=== PATIENT | male | born 1975 | race Hispanic/Latino ===

== ENCOUNTER 2023-12-27 10:28 | Inpatient (IN) | payer OTHER ==
[~2023-12-27] VITALS: Ht 175.3 cm; Wt 89.8 kg
--- NOTE | 2023-12-27 11:12 | ERN ---
General Chief Complaint: Cellulitis Stated Complaint: CELLULITS LLE Time Seen by MD: 10:29 Time Seen by Midlevel: 10:29 Source: patient History of Present Illness Initial Comments Patient is a 48-year-old male with a history of obesity and a right tibia fracture with an or if that was done in [facility] in 2020 [facility] evaluation of right lower extremity swelling and redness. Patient states the redness and swelling started two days ago. He was started on oral antibiotics as well as antibiotic injections with little to no relief so the [facility] sent him for further evaluation. He does report having a previous history of cellulitis to his right lower leg. Most recently he was seen in our hospital earlier this year and was admitted for continuous IV antibiotics. Allergies: Coded Allergies: No Known Drug Allergies (Unverified Allergy, Unknown, 07/01/23) Home Meds No Active Prescriptions or Reported Meds Past Medical History Past Medical History: Diabetes-Type II, GERD, High Cholesterol, Hypertension Past Surgical History: None ROS Dictation CONSTITUTIONAL: Negative except for HPI HEAD/FACE: Negative except for HPI EENT: Negative except for HPI RESPIRATORY: Negative except for HPI GASTROINTESTINAL/ABDOMINAL: Negative except for HPI GENITOURINARY: Negative except for HPI MUSCULOSKELETAL: Negative except for HPI INTEGUMENTARY: Negative except for HPI NEUROLOGICAL/PSYCH: Negative except for HPI HEMATOLOGIC/LYMPHATIC: Negative except for HPI All Systems Negative, Except as noted above. 13 point review of systems assessed and all negative except for above. Physical Exam Physical Exam Dictation Vital Signs reviewed General Appearance: Alert, oriented x 3, no acute distress, well developed, nou rished. Head and Face: non-traumatic. Eyes: PERRL, pink conjunctivas, eyelid no trauma, anterior chamber with arcus senilis. Ears: Pinnas intact and no signs of trauma or erythema ear canals clear and no discharge TM no erythema Nose: No discharge, no bleeding. Oropharynx: Mouth normal, tongue pink, pharynx clear,no erythema, tonsils no exudates, no abscesses noted, mucous me mbrane moist Neck: Supple, non-tender, no thyromegaly, no masses, no JVD, no bruits Breast:Deferred Chest:No tenderness, no crepitus, no paradoxical movement, no retractions Lungs:Clear, well-ventilated, symmetric, no rales, no wheezing, no rhonchi, no stridor, good breath sounds bilaterally Heart: Regular rate, regular rhythm, no murmur, no gallops Vascular: no peripheral edema, Abdomen: Soft, positive bowel sounds, nondistended, no guarding, nontender, no rebound, no masses no hepatomegaly, no splenomegaly, no Muniz's sign, no hernias. Rectal: Deferred Genital: Deferred Neurological: Normal speech, motor function intact, sensory function intact Musculoskeletal: Neck nontender, full range of motion, back nontender, full range of motion, Extremities: Right lower extremity swelling and redness Skin: Color pink, dry, no turgor, no rash, no lacerations, no abrasions, no cont usions. Lymphatic: Deferred Results Laboratory and Microbiology Lab and Micro Result Laboratory Tests Test 12/27/23 11:13 White Blood Count 6.8 K/uL (4.8-10.8) Red Blood Count 4.80 MIL/uL (4.50-6.20) Hemoglobin 14.5 g/dL (14.0-18.0) Hematocrit 42.8 % (42-54) Mean Corpuscular Volume 89.2 fL (79-99) Mean Corpuscular Hemoglobin 30.2 pg (27.0-33.0) Mean Corpuscular Hemoglobin Concent 33.9 g/dL (32.0-36.0) Red Cell Distribution Width 13.3 % (11.0-15.5) Platelet Count 251 K/uL (130-400) Mean Platelet Volume 9.2 fL (7.5-10.5) Immature Granulocyte % (Auto) 0.4 % (0-1) Neutrophils (%) (Auto) 66.6 % (40.0-77.0) Lymphocytes (%) (Auto) 21.5 % (21.0-51.0) Monocytes (%) (Auto) 9.4 % (3.0-13.0) Eosinophils (%) (Auto) 1.8 % (0.0-8.0) Basophils (%) (Auto) 0.3 % (0.0-5.0) Neutrophils # (Auto) 4.5 K/uL (1.8-7.7) Lymphocytes # (Auto) 1.5 K/uL (1.0-4.8) Monocytes # (Auto) 0.6 K/uL (0.1-1.0) Eosinophils # (Auto) 0.12 K/uL (0.00-0.70) Basophils # (Auto) 0.02 K/uL (0.00-0.20) Absolute Immature Granulocyte (auto 0.03 K/uL (0-1) Nucleated Red Blood Cells 0.0 % (0.0-0.19) Sodium Level 142 mmol/L (136-145) Potassium Level 4.5 mmol/L (3.5-5.1) Chloride Level 105 mmol/L (101-111) Carbon Dioxide Level 29 mmol/L (21-32) Blood Urea Nitrogen 11 mg/dL (7-18) Creatinine 0.9 mg/dL (0.5-1.3) Glomerular Filtration Rate Calc 106 mL/min (>90) Random Glucose 104 mg/dL (70-105) Lactic Acid Level 2.1 mmol/L (0.8-2.5) Total Calcium 9.4 mg/dL (8.5-10.1) Procalcitonin 0.07 ng/mL (0.05-0.5) Labs Reviewed?: Yes MDM MDM: Patient is a 48-year-old male with a history of obesity and a right tibia fracture with an or if that was done in [facility] in 2020 [facility] from [facility] for evaluation of right lower extremity swelling and redness. Patient states the redness and swelling started two days ago. He was started on oral antibiotics as well as antibiotic injections with little to no relief so the [facility] sent him for further evaluation. He does report having a previous history of cellulitis to his right lower leg. Most recently he was seen in our hospital earlier this year and was admitted for continuous IV antibiotics. On physical examination patient is in no acute distress. His initial vital signs are stable. Patient is afebrile and nontoxic appearing. His right lower extremity appears to be swollen from the ankle and extends all the way up to the right knee. There is erythema to the entire right lower extremity which is consistent with cellulitis. His CBC does not show any leukocytosis. His lactic acid is only slightly elevated at 2.1 however his procalcitonin is negative. His chemistries are stable. Given that patient has a previous surgery to his right lower extremity with hardware in place and failure outpatient therapy patient was admitted for further observation and management. Patient was started on vancomycin and cefepime and case was discussed with infectious disease specialist who agrees to admit the patient for further observation and management. Differential diagnosis: Cellulitis, DVT, dehydration Rationale: Tests considered and ordered secondary to shared decision making include: Previous outside records reviewed: Old ER visits. Risk of complication and/or morbidity or mortality of patient management: None Medications-Per medication reconciliation Need for hospitalization: Patient does meet criteria for hospitalization. Need for emergency major/minor surgery: No There are no social concerns with this patient. Prescription drug management Prescriptions will include symptomatic care Patient's prior external medical records from other ER visits were reviewed by me as indicated. Prior testing and results from previous visits were reviewed. Prior tests were taken into account with medical decision making and resource utilization, independent historian/historians were used to obtain complete medical history. I independently interpreted the test that were performed, results were reviewed by me and considered findings on radiology if ordered. Medical management and examination interpretation discussions were had by me with other qualified healthcare professionals as indicated for the patient's care. ED Course Orders Procedure Category Date Status Time Cbc With Differential LAB 12/27/23 Complete 10:59 Basic Metabolic Panel LAB 12/27/23 Complete 10:59 Lactic Acid LAB 12/27/23 Complete 10:59 Procalcitonin LAB 12/27/23 Complete 10:59 Us Venous Doppler US 12/27/23 Resulted Unilateral 11:31 Vancomycin Protocol PHA 12/27/23 Logged (Vancomycin Protocol 13:00 Zosyn 3.375gm+Ns 50ml PHA 12/27/23 Logged (Zosyn 3.375gm+Ns 13:00 Blood Cult GABE 12/27/23 Logged 12:31 0.9%Nacl 1000ml (Ns PHA 12/27/23 Logged 1000ml) 13:00 Current Medications Medications (Trade) Dose Ordered Sig/Zee Route PRN Reason Start Time Stop Time Status Last Admin Dose Admin Piperacillin Sod/ Tazobactam Sod (Zosyn 3.375gm+NS 50ml) 3.375 gm ONCE ONCE IV 12/27/23 13:00 12/27/23 13:01 UNV Sodium Chloride 1,000 ml @ 0 mls/hr ONCE ONCE IV 12/27/23 13:00 12/27/23 13:01 UNV Vancomycin HCl (Vancomycin Protocol) 1 each AD IV 12/27/23 13:00 01/10/24 12:59 UNV Vital Signs Date Time Temp Pulse Resp B/P (MAP) Pulse Ox O2 Delivery O2 Flow Rate FiO2 12/27/23 10:29 97.9 69 16 149/95 100 Room Air 0 [facility] [address] [place] [address] IMAGING REPORT Signed PATIENT: SHLOMO BRIDGES MR#: [id number] : 1975 SEX: M AGE: 48 LOCATION: [facility] ORDER 30 STATUS: REG ER REPORT#: [id number] SERVICE 30 REASON: rle swelling/redness ORDERING PHYSICIAN: NAWAF GONZALES PROCEDURE: VENOUS UNI - US VENOUS DOPPLER UNILATERAL US VENOUS DOPPLER UNILATERAL REASON: rle swelling/redness COMPARISON: None Technique: Right venous doppler ultrasound was performed with spectral analysis and color flow imaging technique. FINDINGS: There is a normal appearance of the common femoral, deep femoral, the profunda femoris and popliteal veins. Proximal calf veins appear normal as well. There is normal response to compression and augmentation. There is no evidence of deep venous thrombosis. IMPRESSION: Normal right lower extremity venous Doppler ultrasound. DICTATED BY: EZRA LICONA MD DATE: 12/27/231154 ELECTRONICALLY SIGNED BY: EZRA LICONA MD DATE: 12/27/23 1157 DX & DISP Disposition: Inpatient Decision to Admit Date: Dec 27, 2023 Decision to Admit Time: 12:33 Departure Impression: Primary Impression: Cellulitis of right lower leg Condition: Stable Scripts No Active Prescriptions or Reported Meds Referrals: NONE (PCP) Time of Disposition: 12:33 I have reviewed the case, and I agree with, Diagnosis and Plan I performed the substantive portion of the visit. I have reviewed and personally made and approve the management plan that is documented in the note by myself or the JOSE. I acknowledge for responsibility for the patient's management plan. NAWAF GONZALES Dec 27, 2023 11:12
[2023-12-27 11:25] LABS: BASOPHILS # (AUTO) 0.02 K/uL (0.00-0.20); BASOPHILS % (AUTO) 0.3 % (0.0-5.0); EOSINOPHILS # (AUTO) 0.12 K/uL (0.00-0.70); EOSINOPHILS % (AUTO) 1.8 % (0.0-8.0); HEMATOCRIT 42.8 % (42-54); IMMATURE GRANULOCYTE ABSOLUTE 0.03 K/uL (0-1); LYMPHOCYTES # (AUTO) 1.5 K/uL (1.0-4.8); LYMPHOCYTES % (AUTO) 21.5 % (21.0-51.0); MEAN CORPUSCULAR HEMOGLOBIN 30.2 pg (27.0-33.0); MEAN CORPUSCULAR HGB CONC 33.9 g/dL (32.0-36.0); MEAN CORPUSCULAR VOLUME 89.2 fL (79-99); MONOCYTES # (AUTO) 0.6 K/uL (0.1-1.0); MONOCYTES % (AUTO) 9.4 % (3.0-13.0); NEUTROPHILS # (AUTO) 4.5 K/uL (1.8-7.7); NEUTROPHILS % (AUTO) 66.6 % (40.0-77.0); PLATELET COUNT (AUTO) 251 K/uL (130-400); RED CELL DISTRIBUTION WIDTH 13.3 % (11.0-15.5); WHITE BLOOD COUNT (AUTO) 6.8 K/uL (4.8-10.8)
[2023-12-27 11:27] LABS: CREATININE 0.9 mg/dL (0.5-1.3); POTASSIUM 4.5 mmol/L (3.5-5.1)
--- NOTE | 2023-12-27 11:57 | HMCIMG ---
US VENOUS DOPPLER UNILATERAL REASON: rle swelling/redness COMPARISON: None Technique: Right venous doppler ultrasound was performed with spectral analysis and color flow imaging technique. FINDINGS: There is a normal appearance of the common femoral, deep femoral, the profunda femoris and popliteal veins. Proximal calf veins appear normal as well. There is normal response to compression and augmentation. There is no evidence of deep venous thrombosis. IMPRESSION: Normal right lower extremity venous Doppler ultrasound.
[2023-12-27] MEDS ORDERED: VANCOMYCIN PROTOCOL PER PHARMACY IV SCH (13:00)
[2023-12-27] MEDS ORDERED: ondanSETRON 4MG INJ IVP PRN (13:00)
[2023-12-27] MEDS ORDERED: acetaMINOPHEN 325 MG TAB PO PRN (13:00)
[2023-12-27] MEDS ORDERED: ZOSYN 3.375GM +NS 50ML IV ONE (13:00)
[2023-12-27] MEDS ORDERED: ceFEPime HCL 1 GM VIAL IVPB SCH ×2 (13:00)
[2023-12-27] MEDS: ceFEPime HCL 1 GM VIAL IVPB SCH (15:52)
[2023-12-27] MEDS: 0.9%NACL 1000ML 1,000 ML IV ONE (15:53)
[2023-12-27] MEDS: VANCOMYCIN 2GM/500 ML BAG 500 ML IV ONE (16:26)
--- NOTE | 2023-12-27 16:30 | HMCIMG ---
TIBIA/FIBULA 2VWS RT REASON: CELLULITIS TECHNIQUE: 4 views were obtained. FINDINGS: There are surgical hardware in the distal tibia and fibula consistent with remote previous fracture fixation. Hardware appears intact. There is extensive hardware proximal tibia as well, hardware appears intact is at this location also. Bones appear otherwise normal. There are no new fractures. There is no periostitis or bone lysis to suggest osteomyelitis. Soft tissues appear normal. IMPRESSION: No acute findings.
--- NOTE | 2023-12-27 16:32 | HMCIMG ---
FOOT LIMITED 2VWS RT REASON: CELLULITIS TECHNIQUE: 3 views were obtained. FINDINGS: There is no evidence of fracture or dislocation. There is no joint effusion. The soft tissues appear unremarkable. There is no evidence of a radiopaque foreign body. Surgical hardware is again noted in the distal tibia, hardware appears intact, there is no evidence of infection. IMPRESSION: No acute findings.
[2023-12-28] MEDS: VANCOMYCIN 1.5 GM/250 ML BAG 250 ML IV SCH (02:00)
[2023-12-28 04:56] VITALS: BP 125/65; PULSE 88; RESP 17; TEMP 98.7; O2SAT 100
--- NOTE | 2023-12-28 06:31 | CONS ---
CONSULTING PHYSICIAN: Nasim Unger MD REASON FOR CONSULTATION: Cellulitis of the right lower extremity, possible deep infection. HISTORY OF PRESENT ILLNESS: This is a 48-year-old gentleman who has had a right tibial plateau and right distal tibia pilon fracture ORIF about more than 10 years ago. Then, he did well with those fracture surgeries. He has been able to ambulate well since that surgeries and he has never had any problems, but recently for the past few months, he has been getting cellulitis to the right lower extremity and he keeps coming back to the hospital. He is currently incarcerated also. PAST MEDICAL HISTORY: Hypertension. PAST SURGICAL HISTORY: ORIF of the right tibial plateau, ORIF of the right ankle fracture. ALLERGIES: None. SOCIAL HISTORY: Does not smoke, does not drink alcohol. The patient is currently incarcerated in nursing home. MEDICATIONS: Reviewed. ALLERGIES: None. FAMILY HISTORY: Nothing significant. PHYSICAL EXAMINATION: GENERAL: The patient is awake, alert, oriented x 3. LATEST VITAL SIGNS: Heart rate 84, respiratory rate is 15, blood pressure 142/76, oxygen saturation 100% on room air. HEENT: Normocephalic, atraumatic. NECK: No engorged vein. CHEST: Symmetric movement is seen. HEART: Regular rate and rhythm. ABDOMEN: Soft, nontender. PELVIS: No tenderness on pelvis compression or distraction. EXTREMITIES: Examination of right lower extremity shows healed scar noriega present on the right proximal leg and the knee and also around the right ankle. None of the incisions show any wound dehiscence. No obvious sinuses are seen, erythema present with history of cellulitis on the middle to distal third part of the leg and no induration present. No obvious fluctuance present. Ankle and knee range of motion, full and free. Motor, sensory is grossly intact to tibial nerve, superficial and deep peroneal nerves, sural nerve and saphenous. Dorsalis pedis 1+, posterior tibial 1+. Good capillary refill is present. INVESTIGATIONS: Laboratory investigations were reviewed. X-rays show hardware present to the right proximal tibia and to the distal tibia, hardware inside, there are no signs of hardware failure seen. The fractures have also healed well. No obvious signs of deep infection/osteomyelitis seen on the x-rays. ASSESSMENT AND PLAN: A 48-year-old gentleman who has been admitted with cellulitis to the right lower extremity. The patient currently does not have any signs and symptoms of deep infection suggestive of any hardware infection or deep involvement of the bone or the implant. There were no sinuses or draining wounds seen, so I had an extensive conversation with the patient regarding his condition and I discussed the treatment options including conservative option with IV antibiotics for the cellulitis and the surgical options. I have discussed the risks and benefits of both, but I did tell him that, the patient currently does not have any signs and symptoms of deep infection/hardware infection and even if I remove the deep hardware, there is no guarantee that the patient may not have recurrence of cellulitis. I believe there might be a source of this cellulitis in his nursing home because in the nursing home he lives with another 140 people, so he has been getting that recurrence of source, we treat him in the hospital with IV antibiotics, however, once he goes to the nursing home, I believe he gets reinfected possibly and so even removal of the deep hardware will not 100% guarantee recurrence of cellulitis or reinfection with cellulitis. I told the risks and benefits, the patient preferred conservative management. So, ortho will sign off. TID: [id number] RECEIPT: [id number]
--- NOTE | 2023-12-28 11:52 | HP ---
DATE OF SERVICE: 12/27/2023. HISTORY AND PHYSICAL PRESENTING COMPLAINT: Right leg pain, swelling, and redness. HISTORY OF PRESENT ILLNESS: A 48-year-old male with history of right tibia fracture, status post ORIF in the past. Hopefully, [facility] with right leg pain, swelling, and redness. No trauma or fall. The patient has a history of right tibia fracture for which ORIF was done many years ago. The patient has been having recurrent cellulitis to this right lower extremities. The patient actually was admitted to this facility 6 months ago. At that time was found to have cellulitis was treated with broad-spectrum antibiotic. Imaging done at that time did not show any evidence of osteomyelitis. The patient has no drainage from the leg. No fever or chills. The patient was treated with IM injection of antibiotic, which did not help. PAST MEDICAL HISTORY: * Obesity. * Right tibia fracture. * Recurrent right lower extremity cellulitis. PAST SURGICAL HISTORY: ORIF of right tibia fracture. ALLERGIES: No known drug allergy. HOME MEDICATIONS: Reviewed. SOCIAL HISTORY: The patient at present incarcerated. Denies alcohol, tobacco, or illicit drug use. FAMILY HISTORY: Noncontributory. REVIEW OF SYSTEMS: CONSTITUTIONAL: Denies fever, but has some occasional chills, no weight loss or night sweats. EYES: No eye pain, no photophobia or diplopia. HENT: No sore throat, no rhinorrhea. NECK: No neck pain or neck swelling. RESPIRATORY: No cough, no hemoptysis or pleuritic pain. CARDIOVASCULAR: No chest pain, no palpitation or orthopnea. GASTROINTESTINAL: Denied nausea, vomiting or abdominal pain. GENITOURINARY: No dysuria, urgency or urinary frequency. CENTRAL NERVOUS SYSTEM: No headache, dyspnea, or slurred speech. PSYCHIATRY: No depression. No suicidal ideation. MUSCULOSKELETAL: No joint pain or joint swelling. EXTREMITIES: Positive for right leg pain, swelling, and redness. PHYSICAL EXAMINATION: GENERAL: Young male, awake, not in distress. VITAL SIGNS: Temperature 97.9, pulse 69, respiratory rate 16, and BP 149/95. EYES: No icterus. Pupils equal and reactive. HENT: No oral thrush seen. Moist oral mucosa. NECK: Supple, no JVD or thyromegaly. LUNGS: Good air entry. No rales, no rhonchi. CARDIOVASCULAR: S1, S2 regular. No murmur heard. ABDOMEN: Obese, soft, and nontender. Bowel sounds present. CENTRAL NERVOUS SYSTEM: Awake, alert, and oriented x 3. No focal deficits. SKIN: No rashes, no itchiness. LYMPHATIC: There is right inguinal lymphadenopathy. BACK: No deformity, no pressure ulcer. HEMATOLOGIC: No bleeding or petechial lesions seen. EXTREMITIES: Cellulitis and edema and redness involving the right lower leg. No drainage is seen. No fluctuance seen. ASSESSMENT: A 48-year-old male presented to the hospital with chills and right leg pain and swelling. CURRENT PROBLEMS: Include: * Right lower extremity cellulitis. * Possible right tibia hardware infection. * Hypertension. * Obesity. PLAN: * Admit the patient to medical floor. * Start the patient on vancomycin. * Start the patient on cefepime. * The patient will be given Lovenox for DVT prophylaxis. * Keep right leg elevated. * Tylenol as needed for pain. * Zofran as needed for nausea and vomiting * Follow up cultures. Thank you for allowing me to participate in the care of this patient. TID: [id number] RECEIPT: [id number]
--- NOTE | 2023-12-29 22:59 | DS ---
DATE OF DISCHARGE: 12/28/2023 PRESENTING COMPLAINT: Left leg pain, swelling and redness. HOSPITAL COURSE: A 48-year-old male with history of obesity, hypertension, was [facility] from [facility] with right leg pain, swelling and redness. The patient was found to have cellulitis and was admitted. The patient was started on antibiotics, which include vancomycin and cefepime. While waiting for a bed in the medical floor, the patient decided to leave against medical advice. FINAL DISCHARGE DIAGNOSES: * Right lower extremity cellulitis. * Possible right tibia hardware infection. * Hypertension. * Obesity. PLAN: The patient left against medical advice. Risk of leaving against medical advice including sepsis, recurrent cellulitis, cardiac arrest, and possible explained to the patient, which he verbalized understanding. TID: [id number] RECEIPT: [id number]
== END 2023-12-28 04:59 | disposition left against medical advice (07) | DRG 560 ==
LOC: EDH 10:28 → EEVIPCON 10:28 → EDHIP 12:34
PROVIDERS: ADMIT Internal Medicine Infectious Disease; ATTEND Internal Medicine Infectious Disease
DX: T84.59XA Infection and inflammatory reaction due to other internal joint prosthesis, initial encounter (principal); L03.115 Cellulitis of right lower limb; Y83.8 Other surgical procedures as the cause of abnormal reaction of the patient, or of later complication, without mention of misadventure at the time of the procedure; E78.00 Pure hypercholesterolemia, unspecified; E11.9 Type 2 diabetes mellitus without complications; I10 Essential (primary) hypertension; K21.9 Gastro-esophageal reflux disease without esophagitis; Z53.29 Procedure and treatment not carried out because of patient's decision for other reasons; E66.9 Obesity, unspecified; Y92.89 Other specified places as the place of occurrence of the external cause; Z68.29 Body mass index [BMI] 29.0-29.9, adult; Z79.899 Other long term (current) drug therapy
CPT/HCPCS: 36415; 73590; 73620; 80048; 83605; 84145; 85025; 87040; 93971; G0378; J0692; J3370